=== PATIENT | male | born 1985 | race Caucasian/White ===

== ENCOUNTER → 2024-08-08 | Emergency (ER) | payer SELFPAY ==
[~2024-08-08] VITALS: Ht 175.3 cm; Wt 83.9 kg
[~2024-08-08] MED LIST: AMOX-430 PO; AZITHROMYCIN 250 MG TABLET ONE; AZITHROMYCIN 250 MG TABLET PO ONE; CEFTRIAXONE 500 MG VIAL IM ONE; CEFTRIAXONE 500 MG VIAL ONE; LIDOCAINE 1% INJ 50 ML MDV IJ ONE; METRONIDAZOLE 500 MG TABLET ONE; METRONIDAZOLE 500 MG TABLET PO ONE
[2024-08-08 03:04] VITALS: BP 135/79; TEMP 98.7; O2SAT 99
[2024-08-08 04:28] LABS: APPEARANCE,URINE CLOUDY (CLEAR); BILIRUBIN,URINE NEGATIVE (NEGATIVE); BLOOD, URINE TRACE-INTA Ery/uL (NEGATIVE); COLOR,URINE YELLOW (YELLOW); KETONES,URINE NEGATIVE (NEGATIVE); LEUKOCYTE ESTERASE ,URINE 1+ (NEGATIVE); NITRITE, URINE NEGATIVE (NEGATIVE); PH,URINE 5.5 (5.0-8.0); PROTEIN,URINE TRACE mg/dl (NEGATIVE); UGLUCOSE NEGATIVE (NEGATIVE); UROBILINOGEN,URINE 0.2 EU/dL (0.2)
[2024-08-08 05:37] LABS: ADD URINE CULTURE YES; BACTERIA,URINE 1+ /HPF (None Seen); MUCUS,URINE Few /LPF (None Seen); RBC,URINE 0-2 /HPF (0-2); SQUAMOUS EPITHELIAL CELL,UR None Seen /HPF (None Seen)
[2024-08-09 13:09] LABS: CHLAMYDIA TRACHOMATIS NAA Negative (Negative)
[2024-08-10 04:06] LABS: NEISSERIA GONORRHOEAE NAA Positive (Negative)
== END | disposition home or self-care (01) ==
LOC: ER 02:52
DX: N39.0 Urinary tract infection, site not specified (principal); Z11.3 Encounter for screening for infections with a predominantly sexual mode of transmission; R03.0 Elevated blood-pressure reading, without diagnosis of hypertension; Z79.899 Other long term (current) drug therapy
CPT/HCPCS: 99283; 87086; 81001; 87491; 87591; J3490; J0696